=== PATIENT | female | born 1975 | race Caucasian/White ===

== ENCOUNTER 2017-05-07 21:50 | Emergency (ER) | payer MEDICARE, OTHER ==
[~2017-05-07] VITALS: Ht 165.1 cm; Wt 63.5 kg
--- NOTE | ~2017-05-07 | CR142 ---
[facility] A Service of [facility] & [facility] RADIOLOGY TEXT RESULTS PATIENT: KEILY FAROOQ LOCATION: [facility] : 71 UNIT #: [id number] AGE: [address]: Nat Johnson APRN SEX: F ORDER DR: [id number] [facility] [address]. [place], [place] [address] [id number] E MR#: [id number] #: [id number] NAME: KEILY FAROOQ : 1975 SEX: F STUDY DATE/TIME: 05/07/2017 23:55 UNIT: [facility] ROOM: STUDY DESCRIPTION: CR Hand Min 3 Views Rt Attending Physician: Nat Johnson A.P.R.N. Ordering Physician: Ed Doc Tony Garrido Primary Care Physician: No Primary Care Physician MEDICAL IMAGING REPORT This report is preliminary unless electronic signature is present EXAM Right hand, 05/07/2017. HISTORY 42-year-old female in the ED with right hand pain and numbness after injury. Hand struck by cart today, fourth finger pain. TECHNIQUE Three-view right hand series. FINDINGS No fracture, dislocation or other acute osseous abnormality is demonstrated. 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 IMPRESSION 1. No acute osseous abnormality. 2. 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 Dictated by... Hector De La Fuente M.D. THIS IS AN ELECTRONICALLY VERIFIED REPORT Hector De La Fuente M.D. at 05/09/2017 6:04 AM RENITA/elissa TD: 05/08/2017 22:39 JOB #: [id number] MEDICAL IMAGING REPORT Page 1 of 1 COPY
== END 2017-05-07 23:59 | disposition home or self-care (01) ==
LOC: CED 21:50
DX: S60.041A Contusion of right ring finger without damage to nail, initial encounter (principal); M79.7 Fibromyalgia; F31.9 Bipolar disorder, unspecified; F17.210 Nicotine dependence, cigarettes, uncomplicated; Z88.6 Allergy status to analgesic agent; Z88.0 Allergy status to penicillin; Z88.1 Allergy status to other antibiotic agents; Z88.2 Allergy status to sulfonamides; Z88.8 Allergy status to other drugs, medicaments and biological substances; Z91.040 Latex allergy status; W22.8XXA Striking against or struck by other objects, initial encounter
CPT/HCPCS: 29125; 73130; 84703; 99283